=== PATIENT | male | born 1970 | race Caucasian/White ===

== ENCOUNTER 2016-05-01 11:20 | Emergency (ER) | payer MEDICAID ==
[~2016-05-01] VITALS: Ht 167.6 cm; Wt 60.0 kg
[2016-05-01 12:09] VITALS: BP 137/84
--- NOTE | 2016-05-01 15:21 | NUR ---
PATIENT PRESENTS TO ED WITH ABDOMINAL PAIN X 3 DAYS. . PT STATES HE HAS BEEN VOMITING AND HAVING BLOODY STOOLS. SKIN IS PINK/WARM/DRY; AAOX4 WITH EVEN AND STEADY GAIT; LUNGS CLEAR BL; HR EVEN AND REGULAR; PT DENIES ANY FEVER, CP, SOB, OR COUGH AT THIS TIME; PATIENT STATES PAIN OF 10/10 AT THIS TIME; VSS; PATIENT POSITIONED FOR COMFORT; HOB ELEVATED; BEDRAILS UP X2; BED DOWN. ER MD MADE AWARE OF PT STATUS.
--- NOTE | 2016-05-01 17:10 | NUR ---
DR. BLACK PRESENT AT BEDSIDE.
[2016-05-01] MEDS ORDERED: NACL 0.9% 1,000 ML IV SCH (17:14)
[2016-05-01] MEDS ORDERED: MULTIVITAMIN-12 10 ML, THIAMINE 100 MG, MAGNESIUM SULFATE 50% 2,000 MG, FOLIC ACID 5 MG... IV ONE ×5 (17:14)
[2016-05-01] MEDS ORDERED: fentaNYL 0.05 MG/ML VIAL IVP ONE (17:15)
[2016-05-01] MEDS ORDERED: PANTOPRAZOLE 40 MG INJ VIAL IVP ONE (17:15)
[2016-05-01] MEDS ORDERED: ONDANSETRON 4 MG/2 ML VIAL IVP ONE (17:15)
[2016-05-01 17:34] LABS: BASOPHILS # (AUTO) 0.2 K/uL (0.00-0.22); EOSINOPHILS # (AUTO) 0.1 K/uL (0-0.4); EOSINOPHILS % (AUTO) 1.4 % (0.0-4.0); HEMATOCRIT 39.4 % (36-52); HEMOGLOBIN 12.9 g/dL (12.0-18.0); LYMPHOCYTES # (AUTO) 2.2 K/uL (2.0-11.5); LYMPHOCYTES % (AUTO) 24.9 % (20.5-51.1); MEAN CORPUSCULAR HEMOGLOBIN 27 pg (27-31); MEAN CORPUSCULAR HGB CONC 33 g/dL (33-37); MEAN CORPUSCULAR VOLUME 82 fL (80-94); MONOCYTES # (AUTO) 0.3 K/uL (0.8-1.0); MONOCYTES % (AUTO) 3.8 % (1.7-9.3); NEUTROPHILS # (AUTO) 6.1 K/uL (1.8-7.7); NEUTROPHILS % (AUTO) 67.9 % (42.2-75.2); PLATELET COUNT (AUTO) 362 K/uL (140-450); RED CELL DISTRIBUTION WIDTH 14.9 % (11.6-13.7); WHITE BLOOD COUNT (AUTO) 8.9 K/uL (4.8-10.8)
[2016-05-01 17:46] LABS: ANION GAP 8.3 (8-16); CALCIUM 8.2 mg/dL (8.5-10.1); CARBON DIOXIDE 31.5 mmol/L (21-32); CREATININE 0.7 mg/dL (0.6-1.3); POTASSIUM 3.8 mmol/L (3.5-5.1)
[2016-05-01 17:52] LABS: ALBUMIN 3.5 g/dL (3.4-5.0); TOTAL BILIRUBIN 0.5 mg/dL (0.0-1.0); TOTAL PROTEIN, SERUM 6.2 g/dL (6.4-8.2)
[2016-05-01 18:15] LABS: PROTHROMBIN TIME 9.9 secs (10.8-13.4)
[2016-05-01] MEDS ORDERED: MULTIVITAMIN-12 10 ML VIAL IV ONE (18:21)
[2016-05-01] MEDS ORDERED: MAGNESIUM SULFATE 50% 1000 MG/2 ML VIAL IV ONE (18:21)
[2016-05-01] MEDS ORDERED: THIAMINE 200 MG/2 ML VIAL ONE (18:21)
[2016-05-01] MEDS ORDERED: FOLIC ACID 5 MG/ML SYR ONE (18:21)
--- NOTE | 2016-05-01 18:45 | NUR ---
PER DR. BLACK, NG TUBE INSERTED TO LEFT NARE FOR IRRIGATION. IRRIGATED 200ML OF WATER, ASPIRATED GASTRIC FLUIDS WITH NO BLOOD PRESENT. DR. BLACK AWARE. PT TOLERATED WELL.
--- NOTE | 2016-05-01 18:50 | NUR ---
NGT DISCONTINUED, PT TOLERATED WELL. HANDOFF REPORT GIVEN TO SATYA LORENZO. PT IN STABLE CONDITION.
--- NOTE | 2016-05-01 19:05 | NUR ---
RECEIVED REPORT FROM SATYA KING. PT STABLE, ON MONITOR NO S/S OF DISTRESS NOTED AT THE MOMENT.
[2016-05-01 19:55] VITALS: BP 119/74
--- NOTE | 2016-05-01 19:55 | NUR ---
Patient discharged with v/s stable. Written and verbal after care instructions given and explained. Patient alert, oriented and verbalized understanding of instructions. Ambulatory with steady gait. All questions addressed prior to discharge. ID band removed. Patient advised to follow up with PMD OR RETURN TO ER IF CONDITION WORSENS. Rx of given. Patient educated on indication of medication including possible reaction and side effects. Opportunity to ask questions provided and answered.
== END 2016-05-01 19:55 | disposition home or self-care (01) ==
LOC: MED 11:20
DX: K92.2 Gastrointestinal hemorrhage, unspecified (principal); F10.20 Alcohol dependence, uncomplicated; J45.909 Unspecified asthma, uncomplicated; E11.9 Type 2 diabetes mellitus without complications; K21.9 Gastro-esophageal reflux disease without esophagitis; I10 Essential (primary) hypertension; F41.9 Anxiety disorder, unspecified
CPT/HCPCS: 36415; 71010; 80053; 82948; 84484; 85025; 85610; 85730; 86886; 86900; 86901; 93005; 96361; 96365; 96375; 99285; A9153; C9113; J2405; J3010; J3411; J3475; J3490; J7030; Q0092